=== PATIENT | female | born 1970 | race Caucasian/White ===

== ENCOUNTER → 2021-03-15 | Outpatient (CLI) | payer BC ==
--- NOTE | 2021-03-15 12:02 | Diagnostic Imaging Report ---
PROCEDURE: US Non-ob pelvis comp/trans. TECHNIQUE: Multiple realtime grayscale images were obtained of the pelvis in various projections endovaginally. Transabdominal imaging was also performed. INDICATION: Dysfunctional uterine bleeding. The uterus measures 9.2 x 5.5 x 6.7 cm. There is a hypoechoic myometrial lesion ventrally in the uterine body measuring 4.1 cm long axis most consistent with a fibroid. This is in close proximity to the non-thickened endometrial stripe. The endometrium measured 6 mm. The ovaries are nonvisualized but no adnexal lesion and no free fluid. IMPRESSION: Heterogeneous uterine enlargement with at least one myometrial mass consistent with fibroid in the ventral aspect of the lower body in close proximity to the non-thickened endometrial stripe. A nonvisualization of the ovaries with no detectable adnexal lesion or free fluid. Dictated by: Dictated on workstation # [id number]
== END ==
LOC: RAD 10:00
PROVIDERS: ATTEND Family Medicine
DX: N85.2 Hypertrophy of uterus (principal); R17 Unspecified jaundice
CPT/HCPCS: 76830; 76856

== ENCOUNTER → 2021-04-07 | Outpatient (CLI) | payer BC ==
--- NOTE | 2021-04-07 09:12 | Diagnostic Imaging Report ---
PROCEDURE: US Abdomen, limited. TECHNIQUE: Multiple realtime grayscale images were obtained over the abdomen in various projections. INDICATION: Elevated bilirubin and unspecified jaundice FINDINGS: There is increased echogenicity of liver. There is no biliary duct dilatation. Common bile duct measures less than 5 mm. There is no cholelithiasis, gallbladder wall thickening or pericholecystic fluid. Pancreas is largely obscured by bowel gas. 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 Aorta is nonaneurysmal. IVC is patent. Hepatopetal flow in main portal vein. No ascites. IMPRESSION: Fatty infiltration of the liver. 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 Dictated by: Dictated on workstation # [id number]
== END ==
LOC: RAD FS 07:41
PROVIDERS: ATTEND Family Medicine
DX: K76.0 Fatty (change of) liver, not elsewhere classified (principal)
CPT/HCPCS: 76705